=== PATIENT | female | born 2000 | race Caucasian/White ===

== ENCOUNTER 2020-11-27 09:28 | Emergency (ER) | payer BC, MEDICAID ==
--- NOTE | 2020-11-27 09:57 | EDM.PDOC ---
ED HPI GENERAL MEDICAL PROBLEM - General Chief Complaint: [employer] Problem Stated Complaint: POSSIBLE MASTIS Time Seen by Provider: 11/27/20 09:35 - History of Present Illness INITIAL COMMENTS - FREE TEXT/NARRATIVE: Pt comes in with C/O pain and hardness in her left breast. This started yesterday and is slowly getting worse. There has been no abnormal drainage. She is breast feeding and has Hx of the same x 1. - Related Data Allergies Allergy/AdvReac Type Severity Reaction Status Date / Time amoxicillin Allergy Rash Verified 11/27/20 09:41 Home Meds: Home Meds Cholecalciferol (Vitamin D3) [Vitamin D] 6,000 unit PO DAILY 11/27/20 [History] No122/Iron/Folic Acid [ Multi Tablet] 1 tab PO DAILY 11/27/20 [History] ED ROS GENERAL - Review of Systems Review Of Systems: Comprehensive ROS is negative, except as noted in HPI. Skin: Reports: Other (Left breast pain.) ED EXAM, SKIN/RASH Exam: See Below Text/Narrative:: V.S. are reviewed and she is afebrile. B.P. is low but she tells us this is her nml. Skin: Other (Examining her left breast reveals no obvious redness. She has induration superior and lateral to the nipple that is tender to touch. Skin is intact.) Course - Vital Signs Last Recorded V/S: Last Vital Signs Temp 98.5 F 11/27/20 09:47 Pulse 100 11/27/20 09:47 Resp 20 11/27/20 09:47 BP 103/50 L 11/27/20 09:47 Pulse Ox 97 11/27/20 09:47 - Re-Assessments/Exams Free Text/Narrative Re-Assessment/Exam: 11/27/20 09:56 Keflex will be started. She is to use hot packs for 10 - 15 minutes every 2 hours as needed. Follow up prn if her symptoms get worse. Departure - Departure Time of Disposition: 09:35 Disposition: Home, Self-Care 01 Condition: Good Clinical Impression: Mastitis - Discharge Information *PRESCRIPTION DRUG MONITORING PROGRAM REVIEWED*: No *COPY OF PRESCRIPTION DRUG MONITORING REPORT IN PATIENT VALENTINE: No Instructions: Mastitis, Cephalexin Tablets or Capsules Referrals: PCP,None [Primary Care Provider] - Forms: ED Department Discharge Additional Instructions: Take Keflex 500 mg one tablet three times a day for 7 days; apply hot packs to area Sepsis Event Note (ED) - Evaluation Sepsis Screening Result: No Definite Risk - Focused Exam Vital Signs: Vital Signs Temp Pulse Resp BP Pulse Ox 11/27/20 09:47 98.5 F 100 20 103/50 L 97
== END 2020-11-27 10:00 | disposition home or self-care (01) ==
LOC: LB.ED 09:28
DX: N61.0 Mastitis without abscess (principal); Z88.0 Allergy status to penicillin
CPT/HCPCS: 99283